=== PATIENT | female | born 1970 | race Caucasian/White ===

== ENCOUNTER → 2023-04-10 | Outpatient (CLI) | payer MEDICARE, OTHER ==
[2023-04-10 12:13] LABS: Bun/Creatinine Ratio 10.1 (12.0-20.0); Calcium, Blood 9.3 mg/dL (8.5-10.1); Creatinine, Blood 0.99 mg/dL (0.40-1.00); Potassium, Blood 4.6 mmol/L (3.5-5.5)
== END ==
LOC: LAB SHORT 12:01 → LAB 12:01
PROVIDERS: Chiropractor
DX: R06.09 Other forms of dyspnea (principal)
CPT/HCPCS: 80048; 84484; 85379

== ENCOUNTER → 2023-10-31 | Outpatient (CLI) | payer MEDICARE, OTHER | LOC: LAB SHORT 12:57 | DX: N30.00 Acute cystitis without hematuria (principal) | CPT/HCPCS: 87086 ==

== ENCOUNTER 2024-10-01 08:06 | Emergency (ER) | payer MEDICARE, OTHER ==
[~2024-10-01] VITALS: Ht 142.2 cm; Wt 90.7 kg
[2024-10-01 09:00] LABS: BASOPHILS ABSOLUTE AUTO 0.03 K/mm3 (0.00-0.23); BASOPHILS PERCENT AUTO 1 % (0-2); EOSINOPHILS ABSOLUTE AUTO 0.09 K/mm3 (0.00-0.68); EOSINOPHILS PERCENT AUTO 1 % (0-6); Hematocrit 49.5 % (33.0-51.0); Hemoglobin 16.2 g/dL (11.5-16.0); IMMATURE GRAN ABSOLUTE AUTO 0.03 K/mm3 (0.00-0.10); IMMATURE GRAN PERCENT AUTO 1 % (0-1); LYMPHOCYTES ABSOLUTE AUTO 1.26 K/mm3 (0.84-5.20); LYMPHOCYTES PERCENT AUTO 19 % (21-46); MONOCYTES PERCENT AUTO 9 % (4-13); Mean Corpuscular HGB 32.9 pg (26.0-34.0); Mean Corpuscular HGB Conc 32.7 g/dL (31.5-36.5); Mean Corpuscular Volume 101 fL (80-100); NEUTROPHILS ABSOLUTE AUTO 4.58 K/mm3 (1.96-9.15); NEUTROPHILS PERCENT AUTO 69 % (41-73); Platelet Count 225 K/mm3 (150-400); RDW Coefficient Variation 14.7 % (11.7-14.2); RDW Standard Deviation 54.5 fL (35.1-46.3); Red Blood Cell Count 4.92 M/mm3 (3.80-5.20); White Blood Cell Count 6.59 K/mm3 (4.00-11.30)
[2024-10-01 09:18] LABS: Albumin, Blood 3.6 g/dL (3.4-5.0); Albumin/Globulin Ratio 0.8 (0.8-1.8); Bilirubin, Total 0.8 mg/dL (0.1-1.0); Bun/Creatinine Ratio 22.9 (12.0-20.0); Calcium, Blood 9.2 mg/dL (8.5-10.1); Creatinine, Blood 1.18 mg/dL (0.40-1.00); Globulin, Blood 4.8 g/dL (2.2-4.0); Potassium, Blood 3.9 mmol/L (3.5-5.5); Total Protein, Blood 8.4 g/dL (6.4-8.2)
[2024-10-01] MEDS ORDERED: Ketorolac Tromethamine 15mg Vial IV ONE (11:05)
[2024-10-01] MEDS ORDERED: NS 1,000 ML IV SCH (11:05)
[2024-10-01] MEDS ORDERED: DiphenhydrAMINE HCl 50 MG/ML 1ML Vial IV ONE (11:05)
[2024-10-01] MEDS ORDERED: Prochlorperazine Edisylate 10 mg Vial IV ONE (11:05)
[2024-10-01 12:30] VITALS: BP 136/94
[2024-10-01] MEDS ORDERED: Ondansetron Odt8 MG MM (12:51)
[2024-10-01] MEDS ORDERED: TRELEGY ELLIPT1 EAC1 INH (12:51)
[2024-10-01] MEDS ORDERED: ROSUVASTATIN CA20 MG PO (12:52)
[2024-10-01] MEDS ORDERED: IPRAT-ALBUT 0.5-3 ML INH (12:52)
[2024-10-01] MEDS ORDERED: METOPROLOL TART5010 PO (12:53)
[2024-10-01] MEDS ORDERED: PANTOPRAZOLE SO2010 PO (12:53)
[2024-10-01] MEDS ORDERED: TRAZ100 PO (12:53)
[2024-10-01] MEDS ORDERED: TRIDERM28.4 GM TOP (12:54)
[2024-10-01] MEDS ORDERED: DICLOFENAC SODI50 GM TOP (12:54)
[2024-10-01] MEDS ORDERED: CYMBALTA30 M2 PO (12:54)
== END 2024-10-01 12:56 | disposition home or self-care (01) ==
LOC: ER 08:06
PROVIDERS: Student in an Organized Health Care Education/Training Program
DX: I63.9 Cerebral infarction, unspecified (principal); Z88.1 Allergy status to other antibiotic agents; J44.9 Chronic obstructive pulmonary disease, unspecified
CPT/HCPCS: 70450; 80053; 85025; 93005; 93010; 96374; 96375; 99284-25; J0780; J1200; J1885; J7030

== ENCOUNTER → 2025-04-13 | Outpatient (CLI) | payer MEDICARE, OTHER ==
[~2025-04-13] MED LIST: CYMBALTA30 M2 PO; DICLOFENAC SODI50 GM TOP; IPRAT-ALBUT 0.5-3 ML INH; METOPROLOL TART5010 PO; Ondansetron Odt8 MG MM; PANTOPRAZOLE SO2010 PO; ROSUVASTATIN CA20 MG PO; TRAZ100 PO; TRELEGY ELLIPT1 EAC1 INH; TRIDERM28.4 GM TOP
== END ==
LOC: LAB 18:08 → LAB SHORT 18:08
DX: R30.0 Dysuria (principal)
CPT/HCPCS: 87086